=== PATIENT | male | born 1965 | race African-American/Black ===

== ENCOUNTER 2020-08-14 11:20 | Emergency (ER) | payer OTHER, SELFPAY ==
[2020-08-14 11:33] VITALS: BP 136/75; PULSE 80; RESP 17; TEMP 36.6; O2SAT 99; BMI 30.5
--- NOTE | 2020-08-14 12:31 | ED_ITS ---
HPI - General Adult General Chief complaint: General Medical Stated complaint: med refill Time Seen by Provider: 08/14/20 12:31 Source: patient Mode of arrival: ambulatory Limitations: no limitations History of Present Illness HPI narrative: 53-year-old male with [id number] diabetes he has been on metformin for about 10 years now he is here requesting refill as he is between providers. He still has 1 day left of his meds for. POC this morning was 107. He is prescribed 500 mg tablets 2 tablets in the morning by mouth and 1 tablet by mouth at dinner Onset (ago): day(s) Relieving factors: none Exacerbating factors: none Treatments prior to arrival: none Related Data Previous Rx's Medication Instructions Recorded metformin See Rx Instructions .ROUTE 08/14/20 .COMPLEX 30 Days #90 tab Allergies Allergy/AdvReac Type Severity Reaction Status Date / Time No Known Allergies Allergy Verified 08/14/20 12:41 Review of Systems Review of Systems: Constitutional: No Weight loss, No Fever, No Chills, No Night Sweats, No Fatigue, No Malaise ENT/Mouth: No Hearing loss, No Ear Pain, No Nasal Congestion, No Sinus Pain, No Hoarseness Eyes: No Eye Pain, No Swelling, No Redness, No Foreign Body, No Discharge, No Vision Changes Cardiovascular: No Chest Pain, No SOB, No Dyspnea on Exertion, No Orthopnea, No Edema, No Palpitations Respiratory: No Cough, No Sputum, No Wheezing, No Smoke Exposure, No Dyspnea Gastrointestinal: No Nausea, No Vomiting, No Diarrhea, No Constipation, No abdominal Pain, No Hematochezia, No Melena Genitourinary: no irregular bleeding, No Dysuria, No Urinary Frequency, No Hematuria, No Urinary Incontinence, No Urgency Musculoskeletal: No joint pain, No Myalgias, No Joint Swelling Skin: No Skin Lesions, No rash Neuro: No Weakness, No Numbness, No Paresthesias, No Loss of Consciousness, No Dizziness, No Headache Psych: No Social Issues Heme/Lymph: No Bruising, No Bleeding,No Lymphadenopathy Endocrine: No Polyuria, No Polydipsia, No Temperature Intolerance Yes all other systems are reviewed and are negative PMFSH Past Medical History Medical History Diabetes 1.5, managed as type 2 Physical Exam Vital Signs: Vital Signs: Last Vital Signs Temp 98 F 08/14/20 11:33 Pulse 80 08/14/20 11:33 Resp 17 08/14/20 11:33 BP 136/75 08/14/20 11:33 Pulse Ox 99 08/14/20 11:33 Body Mass Index 30.5 Reviewed Const: General: cooperative and healthy appearing; No acute distress or intoxicated appearing Nutritional Appearance: average body habitus Orientation/consciousness: patient oriented x3 Eyes: General: appearance normal, both eyes and all related structures Visual Dickerson: normal visual dickerson by confrontation Neck: Neck: Yes normal visual inspection, No positive Brudzinski's sign, No positive Kernig's sign and No tender Thyroid: Thyroid normal Chest: Chest palpation & inspection: normal inspection of the chest Resp: Effort & Inspection: normal respiratory effort Auscultation: clear to auscultation bilaterally Cardio: Rhythm: regular rhythm Heart sounds: S1 normal heart sound present and S2 normal heart sound present Skin: General skin exam: no rashes or lesions noted Neuro: General: patient oriented x3 Extrem: General: Yes normal to inspection Discharge Plan Discharge Clinical Impression: Medication refill, Diabetes, [place] [employer] (ADA) diet Patient Disposition: Home, Self-Care Instructions: Basic Carbohydrate Counting (DC), Medicine Refill (ED) Prescriptions: New metformin 500 mg tablet See Rx Instructions .ROUTE .COMPLEX 30 Days Qty: 90 RF: 0 Referrals: Physician,None [Primary Care Provider] - 1 week
== END 2020-08-14 12:50 | disposition home or self-care (01) ==
LOC: HO.ED 12:43
PROVIDERS: Emergency Provider Internal Medicine
DX: E11.9 Type 2 diabetes mellitus without complications (principal); Z76.0 Encounter for issue of repeat prescription
CPT/HCPCS: 99283

== ENCOUNTER 2020-08-24 09:51 | Outpatient (REF) | payer OTHER, MEDICAID, SELFPAY ==
--- NOTE | 2020-08-24 10:37 | XR_ITS ---
EXAMINATION: XR ANKLE, RIGHT XR FOOT, RIGHT CLINICAL INFORMATION: Pain in the right ankle and joints of right foot. COMPARISON: None TECHNIQUE: 3 views of the right foot. 2 additional views of the right ankle. FINDINGS: Right foot: No fracture or dislocation. Irregularity is seen at the head of the second digit proximal phalanx which could be from prior trauma. No acute abnormality. No acute erosion. Small osteophytes at the first metatarsophalangeal joint. Osteophyte formation seen at the midfoot with dorsal spurring. Plantar heel spur. Right ankle: No fracture or dislocation. The ankle mortise is congruent. Mild medial soft tissue swelling. No ankle joint effusion. XR/XR ankle RT min 3V IMPRESSION: Mild degenerative changes of the foot. Plantar heel spur.
--- NOTE | 2020-08-24 10:37 | XR_ITS ---
EXAMINATION: XR ANKLE, RIGHT XR FOOT, RIGHT CLINICAL INFORMATION: Pain in the right ankle and joints of right foot. COMPARISON: None TECHNIQUE: 3 views of the right foot. 2 additional views of the right ankle. FINDINGS: Right foot: No fracture or dislocation. Irregularity is seen at the head of the second digit proximal phalanx which could be from prior trauma. No acute abnormality. No acute erosion. Small osteophytes at the first metatarsophalangeal joint. Osteophyte formation seen at the midfoot with dorsal spurring. Plantar heel spur. Right ankle: No fracture or dislocation. The ankle mortise is congruent. Mild medial soft tissue swelling. No ankle joint effusion. XR/XR foot RT min 3V IMPRESSION: Mild degenerative changes of the foot. Plantar heel spur.
--- NOTE | 2020-08-24 10:37 | XR_ITS ---
EXAMINATION: XR FOOT, LEFT CLINICAL INFORMATION: Pain COMPARISON: None TECHNIQUE: AP, lateral, and oblique views of the left foot. FINDINGS: No fracture or dislocation. Alignment is anatomic. Mild degenerative change at the first metatarsophalangeal joint with sclerosis present. Chronic appearing flattening of the second digit proximal phalanx head. The soft tissues are unremarkable. Heel spurs are noted. XR/XR foot LT min 3V IMPRESSION: Heel spurs. Mild degenerative change at the first metatarsophalangeal joint.
--- NOTE | 2020-08-24 10:37 | XR_ITS ---
EXAMINATION: XR FINGER, RIGHT CLINICAL INFORMATION: Right fourth digit pain. COMPARISON: None TECHNIQUE: Three views of the right hand fourth digit. FINDINGS: There is dorsal displacement of the distal phalanx of the fourth digit. Remodeling of the middle and distal phalangeal articular surfaces of the distal clavicle joint is noted. There is no acute fracture. Mild soft tissue swelling is seen in the fourth digit. The remainder the digits are intact. There is no acute fracture. Deformity seen in the scaphoid bone with moderate radioscaphoid degenerative joint changes. The carpal bones are otherwise normally aligned. Mild surrounding soft tissue swelling is seen. XR/XR finger RT min 2V IMPRESSION: 1. Malalignment of the distal interphalangeal joint of the fourth digit as detailed above. Corticated osseous remodeling suggests this is chronic. A definitive acute fracture is not seen. 2. Deformity in the scaphoid bone appears to be chronic representing an old mid scaphoid body fracture. Moderate adjacent radiocarpal degenerative joint changes suggesting associated osteoarthritis. Correlate with trauma history.
--- NOTE | 2020-08-24 10:37 | XR_ITS ---
EXAMINATION: XR LUMBOSACRAL SPINE CLINICAL INFORMATION: Lower back pain COMPARISON: None TECHNIQUE: Three views of the lumbosacral spine. FINDINGS: There is no fracture or subluxation. Vertebral body height and alignment is maintained. Disc spaces are maintained. Prominent multilevel endplate osteophytes are present. Multilevel facet arthropathy noted. The sacroiliac joints are symmetric. The visualized sacrum appears intact. The bowel gas pattern is unremarkable. XR/XR lumbar spine 2-3V IMPRESSION: Mild multilevel degenerative changes of the lumbar spine.
[2020-08-24 10:54] LABS: MANUAL DIFF FLAG NO
[2020-08-24 11:00] LABS: Basophils Percent Auto 0.3 % (0-2); Eosinophils Absolute Auto 0.1 X10*3/uL (0.0-0.4); Eosinophils Percent Auto 1.7 % (0-4); Hematocrit 41.1 % (42-52); Hemoglobin 14.1 g/dl (14.0-18.0); Imm Gran Abs Auto 0.02 X10*3/uL (0.00-0.03); Imm Gran Pct Auto 0.3 % (0.0-0.4); Lymphocytes Absolute Auto 2.2 X10*3/uL (1.2-4.9); Lymphocytes Percent Auto 28.7 % (20-40); Mean Corpuscular HGB Conc 34.3 g/dl (31.0-36.0); Mean Corpuscular Hemoglobin 31.6 pg (27.0-33.0); Mean Corpuscular Volume 92.2 fL (80-98); Mean Platelet Volume 10.5 fL (9.4-12.4); Monocytes Absolute Auto 0.7 X10*3/uL (0.1-1.2); Monocytes Percent Auto 8.8 % (2-11); Neutrophils Absolute Auto 4.6 X10*3/uL (2.0-8.3); Neutrophils Percent Auto 60.2 % (45-73); Platelet Count 265 X10*3/uL (160-400); Red Blood Count 4.46 X10*6/uL (4.60-5.80); Red Cell Distribution Width 11.6 % (11.0-16.0); White Blood Count 7.6 X10*3/uL (4.8-10.8)
[2020-08-24 11:03] LABS: Glucose Urine UA NEG (NEG); Leukocyte Esterase Urine NEG (NEG); Nitrite Urine NEG (NEG); PH 5.5 (5.0-8.0); Specific Gravity - Urine <= 1.005 (1.005-1.025); Urine Blood NEG (NEG); Urine Ketones NEG (NEG); Urine Protein NEG (NEG-TRACE)
[2020-08-24 11:04] LABS: Appearance Urine CLEAR; Color Urine STRAW
[2020-08-24 11:28] LABS: Alanine Aminotransferase 18 U/L (0-40); Albumin Level 4.4 g/dL (3.5-5.0); Alkaline Phosphatase 61 U/L (39-117); Anion Gap 10 (12-20); Aspartate Amino Transferase 16 U/L (5-37); Bilirubin Total 0.4 mg/dL (0.0-1.0); Blood Urea Nitrogen 10 mg/dL (9-16); Calcium 9.6 mg/dL (8.4-10.2); Carbon Dioxide 29 mmol/L (22-29); Chloride 101 mmol/L (96-108); Cholesterol 215 mg/dL; Estimated Glomerular Filt Rate > 60; Glucose Fasting 136 mg/dL (60-99); HDL Cholesterol 66 mg/dL; LDL Cholesterol Calculated 134 mg/dl; Magnesium 1.9 mg/dL (1.6-2.6); Potassium 4.2 mmol/L (3.3-5.1); Sodium 136 mmol/L (135-145); Total Protein 7.2 g/dL (6.5-8.0); Triglycerides 78 mg/dL
[2020-08-24 11:42] LABS: Creatinine Urine 20.64 mg/dL; Microalbum/Creatinine Ratio Ur 38.7 ug/mg cr
[2020-08-24 11:51] LABS: Prostate Specific Antigen Scr 2.32 ng/mL (<0.05-4.0); TSH reflex Free T4 1.96 uIU/mL (0.32-4.0); Vitamin D 25-OH Total 15.4 ng/mL (>30)
[2020-08-24 11:58] LABS: Folate 13.3 ng/mL (> or = 4.0); Vitamin B12 406 pg/mL (200-900)
== END 2020-08-24 09:52 | disposition home or self-care (01) ==
LOC: HO.LAB 09:51
PROVIDERS: PCP Internal Medicine; Visit Provider Internal Medicine
DX: Z00.00 Encounter for general adult medical examination without abnormal findings (principal); E11.9 Type 2 diabetes mellitus without complications; F10.11 Alcohol abuse, in remission; M54.5 Low back pain; M25.571 Pain in right ankle and joints of right foot; M79.89 Other specified soft tissue disorders; M79.671 Pain in right foot; M79.672 Pain in left foot; Z12.5 Encounter for screening for malignant neoplasm of prostate
CPT/HCPCS: 36415; 72100; 73140; 73610; 73630; 80053; 80061; 81003; 82043; 82306; 82607; 82746; 83735; 84153; 84443; 85025

== ENCOUNTER → 2020-10-04 13:36 | Outpatient (BNVA) | payer OTHER, MEDICAID, SELFPAY | PROVIDERS: PCP Internal Medicine; Visit Provider Physician Assistant ==